=== PATIENT | female | born 1980 | race Caucasian/White ===

== ENCOUNTER 2021-07-22 00:19 | Inpatient (IN) ==
[2021-07-22] MEDS ORDERED: PANTOPRAZOLE 40 MG VIAL IV STA (01:04)
[2021-07-22] MEDS ORDERED: SODIUM CHLORIDE 0.9% 1,000 ML IV STA (01:04)
[2021-07-22] MEDS ORDERED: HYDROmorphone 1 MG/1 ML SYRINGE IV STA (01:04)
[2021-07-22 01:15] LABS: Immature Granulocytes % 0.6 %; Immature Granulocytes Absolute 0.02 #
[2021-07-22 01:31] LABS: Albumin 3.7 G/DL (3.4-5.0); Bilirubin,Total 0.6 MG/DL (0.20-1.00); Calcium 9.5 MG/DL (8.5-10.1); Osmolality,Calculated 272.7 MOS/KG (273-304); Potassium 3.3 MMOL/L (3.5-5.1); Total Protein 7.5 G/DL (6.4-8.2)
[2021-07-22 01:35] LABS: Basophils % 0.6 % (0.0-0.8); Hemoglobin 11.5 GM/DL (12.0-16.0); Lymphocytes # 0.6 10*3/uL (1.4-4.0); Lymphocytes % 16.3 % (21.3-54.2); Mean Corpuscular HGB Conc 26.3 GM/DL (32-36); Mean Corpuscular Volume 81.5 FL (87-102); Monocytes # 0.2 10*3/uL (0.11-0.8); Monocytes % 5.9 % (1.7-12.7); Neutrophils % 76.6 % (38.7-73.9); Platelet Count 410 T/CUMM (130-400); Red Blood Count 5.36 MC/CUMM (3.8-5.5); Red Cell Distribution Width 18.6 % (9.3-17.3); White Blood Count 3.6 T/CUMM (4-12)
[2021-07-22] MEDS ORDERED: MAGNESIUM SULF RIDER 2 GM/50 ML PREMIX IV STA (01:41)
[2021-07-22] MEDS ORDERED: POTASSIUM CHLORIDE 20 MEQ TABLET PO STA (01:41)
[2021-07-22 01:43] LABS: Hematocrit 43.7 VOL% (35.7-47.0)
[2021-07-22 02:31] LABS: Bacteria,Urine Moderate /HPF (Few); Mucus,Urine Many /LPF (Occasional); RBC,Urine 4 /HPF (0-4); Squamous Epithelial Cell,Urine Occasional /HPF (0-10); Urine Color Yellow (Yellow)
[2021-07-22 02:32] LABS: Bilirubin,Urine Small mg/dL (Negative); Blood, Urine Trace mg/dL (Negative); Glucose,Urine (UA) Negative (Negative); Ketones,Urine >=160 mg/dL (Negative); Nitrite,Urine Positive (Negative); Protein,Urine 100 mg/dL (Negative); Urine Appearance SL CLOUDY (Clear); Urine Specific Gravity 1.025 (1.001-1.035)
[2021-07-22 02:45] LABS: Platelet Estimate Increased
[2021-07-22 02:46] LABS: Hypochromia 1+; Polychromasia 1+; Stomatocytes 1+
[2021-07-22] MEDS ORDERED: METOCLOPRAMIDE 10 MG/2 ML VIAL IV STA (03:35)
[2021-07-22] MEDS ORDERED: LEVOFLOXACIN INJ 750 MG/150 ML PREMIX IV STA (03:41)
[2021-07-22] MEDS ORDERED: GLUCAGON 1 MG VIAL IM PRN (04:05)
[2021-07-22] MEDS ORDERED: ACETAMINOPHEN 325 MG TABLET PO PRN (04:05)
[2021-07-22] MEDS ORDERED: DEXTROSE 10% 250 ML BAG IV PRN (05:00)
[2021-07-22] MEDS: SODIUM CHLORIDE 0.9% 1,000 ML IV SCH (06:00)
[2021-07-22 07:14] LABS: Albumin 2.9 G/DL (3.4-5.0); Basophils % 0.2 % (0.0-0.8); Bilirubin,Total 0.4 MG/DL (0.20-1.00); Calcium 8.4 MG/DL (8.5-10.1); Hematocrit 37.5 VOL% (35.7-47.0); Hemoglobin 9.7 GM/DL (12.0-16.0); Immature Granulocytes Absolute 0.04 #; Lymphocytes # 0.6 10*3/uL (1.4-4.0); Lymphocytes % 14.6 % (21.3-54.2); Mean Corpuscular HGB Conc 25.9 GM/DL (32-36); Mean Corpuscular Volume 83.5 FL (87-102); Mean Platelet Volume 10.4 FL (9.6-12.0); Monocytes # 0.4 10*3/uL (0.11-0.8); Neutrophils % 75.2 % (38.7-73.9); Osmolality,Calculated 279.1 MOS/KG (273-304); Platelet Count 345 T/CUMM (130-400); Potassium 3.3 MMOL/L (3.5-5.1); Red Blood Count 4.49 MC/CUMM (3.8-5.5); Red Cell Distribution Width 17.7 % (9.3-17.3); Total Protein 6.5 G/DL (6.4-8.2); White Blood Count 4.1 T/CUMM (4-12)
[2021-07-22 07:34] LABS: Hypochromia 1+; Microcytosis 1+; Ovalocytes Slight; Platelet Estimate Normal
[2021-07-22] MEDS: PANTOPRAZOLE 40 MG TABLET PO SCH (11:50)
[2021-07-22] MEDS: PROMETHAZINE 25 MG/1 ML VIAL IM PRN ×2 (12:05→21:13)
[2021-07-22] MEDS: ACETAMINOPHEN 500 MG TABLET PO PRN (12:20)
[2021-07-22] MEDS ORDERED: POTASSIUM CHLORIDE 20 MEQ TABLET PO ONE (13:00)
[2021-07-23] MEDS: SODIUM CHLORIDE 0.9% 1,000 ML IV SCH ×2 (01:14→16:51)
[2021-07-23] MEDS: ACETAMINOPHEN 500 MG TABLET PO PRN ×2 (02:00→07:25)
[2021-07-23] MEDS ORDERED: LEVOFLOXACIN INJ 250 MG/50 ML PREMIX IV SCH (05:00)
[2021-07-23 09:23] LABS: Calcium 9.1 MG/DL (8.5-10.1); Osmolality,Calculated 272.5 MOS/KG (273-304); Potassium 3.4 MMOL/L (3.5-5.1)
[2021-07-23 09:33] LABS: Basophils % 0.7 % (0.0-0.8); Hematocrit 40.3 VOL% (35.7-47.0); Immature Granulocytes Absolute 0.03 #; Lymphocytes # 0.9 10*3/uL (1.4-4.0); Lymphocytes % 28.6 % (21.3-54.2); Mean Corpuscular HGB Conc 24.8 GM/DL (32-36); Mean Corpuscular Volume 86.1 FL (87-102); Mean Platelet Volume 11.1 FL (9.6-12.0); Monocytes # 0.4 10*3/uL (0.11-0.8); Monocytes % 11.5 % (1.7-12.7); Neutrophils % 57.2 % (38.7-73.9); Platelet Count 310 T/CUMM (130-400); Red Blood Count 4.68 MC/CUMM (3.8-5.5); Red Cell Distribution Width 18.1 % (9.3-17.3)
[2021-07-23 09:57] LABS: Hypochromia 1+; Microcytosis 1+
[2021-07-23 09:58] LABS: Platelet Estimate Normal
[2021-07-23] MEDS: PANTOPRAZOLE 40 MG TABLET PO SCH (10:23)
[2021-07-23] MEDS ORDERED: POTASSIUM CHLORIDE 20 MEQ TABLET PO ONE (13:45)
[2021-07-23] MEDS: PROMETHAZINE 25 MG/1 ML VIAL IM PRN (14:35)
[2021-07-24] MEDS: ACETAMINOPHEN 500 MG TABLET PO PRN ×2 (05:37→12:13)
[2021-07-24] MEDS: PROMETHAZINE 25 MG/1 ML VIAL IM PRN ×2 (05:37→12:13)
[2021-07-24] MEDS: SODIUM CHLORIDE 0.9% 1,000 ML IV SCH ×2 (07:32→07:35)
[2021-07-24 08:08] LABS: Calcium 8.5 MG/DL (8.5-10.1); Osmolality,Calculated 276.3 MOS/KG (273-304); Potassium 3.9 MMOL/L (3.5-5.1)
[2021-07-24] MEDS ORDERED: MAGNESIUM SULF RIDER 2 GM/50 ML PREMIX IV ONE (09:32)
[2021-07-24] MEDS ORDERED: cefTRIAXone 2,000 MG in SODIUM CHLORIDE 0.9% 100 ML IV SCH (10:00)
[2021-07-24] MEDS: SODIUM CHLOR 0.9% KCL 40 MEQ 40 MEQ/1,000 ML BAG IV SCH ×2 (10:33→22:30)
[2021-07-24] MEDS: DOCUSATE SODIUM 100 MG CAPSULE PO SCH ×2 (10:33→22:30)
[2021-07-24] MEDS: PANTOPRAZOLE 40 MG TABLET PO SCH (10:33)
[2021-07-24] MEDS ORDERED: ENOXAPARIN 40 MG/0.4 ML SYRINGE SUBCUT SCH (12:00)
[2021-07-24] MEDS: METOCLOPRAMIDE 10 MG/2 ML VIAL IV SCH ×2 (12:12→17:27)
[2021-07-24] MEDS: FERROUS SULFATE 325 MG TABLET PO SCH (17:30)
[2021-07-25] MEDS: METOCLOPRAMIDE 10 MG/2 ML VIAL IV SCH (00:02)
[2021-07-25] MEDS: PROMETHAZINE 25 MG/1 ML VIAL IM PRN ×2 (03:26→10:10)
[2021-07-25] MEDS: ACETAMINOPHEN 500 MG TABLET PO PRN ×2 (03:26→10:12)
[2021-07-25 06:17] LABS: Calcium 8.9 MG/DL (8.5-10.1); Osmolality,Calculated 276.3 MOS/KG (273-304)
[2021-07-25 06:30] LABS: Basophils % 0.7 % (0.0-0.8); Eosinophils # 0.1 10*3/uL (0.0-0.87); Eosinophils % 4.3 % (0.00-10.9); Hematocrit 36.6 VOL% (35.7-47.0); Immature Granulocytes % 0.7 %; Immature Granulocytes Absolute 0.02 #; Lymphocytes % 35.6 % (21.3-54.2); Mean Corpuscular HGB Conc 24.9 GM/DL (32-36); Mean Corpuscular Volume 86.7 FL (87-102); Mean Platelet Volume 10.8 FL (9.6-12.0); Monocytes # 0.3 10*3/uL (0.11-0.8); Monocytes % 12.2 % (1.7-12.7); Neutrophils % 46.5 % (38.7-73.9); Platelet Count 268 T/CUMM (130-400); Red Blood Count 4.22 MC/CUMM (3.8-5.5); Red Cell Distribution Width 17.9 % (9.3-17.3); White Blood Count 2.8 T/CUMM (4-12)
[2021-07-25 06:32] LABS: Hemoglobin 9.1 GM/DL (12.0-16.0)
[2021-07-25 06:33] LABS: Hypochromia 1+; Microcytosis 1+; Stomatocytes Slight
[2021-07-25 06:34] LABS: Platelet Estimate Normal
[2021-07-25] MEDS ORDERED: DULoxetine 30 MG CAPSULE PO SCH (09:00)
[2021-07-25] MEDS: PANTOPRAZOLE 40 MG TABLET PO SCH (09:48)
[2021-07-25] MEDS: DOCUSATE SODIUM 100 MG CAPSULE PO SCH (09:48)
[2021-07-25] MEDS: FERROUS SULFATE 325 MG TABLET PO SCH (09:48)
[2021-07-25] MEDS ORDERED: cefTRIAXone 1,000 MG in SODIUM CHLORIDE 0.9% 100 ML IV SCH (10:00)
[2021-07-25] MEDS ORDERED: METOCLOPRAMIDE 10 MG/10 ML UDCUP PO SCH (11:30)
[2021-07-25 13:20] VITALS: BP 118/54
== END 2021-07-25 18:15 | disposition home health service (06) | DRG 254 ==
LOC: EDBD → EDUNIT# → N.ED 00:19 → N.EDINP 00:19 → N.TELES 16:21 → SUATTDRO 07-24 09:29
PROVIDERS: ADMIT Internal Medicine; ATTEND Internal Medicine